=== PATIENT | male | born 1970 | race Caucasian/White ===

== ENCOUNTER 2017-03-31 02:23 | Emergency (ER) | payer BC, OTHER ==
[2017-03-31] MEDS ORDERED: oxyCODONE/Acetamin 5/325 MG* TAB PO ONE ×2 (04:49→04:50)
[2017-03-31 05:33] VITALS: BP 134/76
--- NOTE | 2017-03-31 08:13 | RAD ---
INDICATION: Right ankle pain. TECHNIQUE: 3 views of the right ankle were obtained. FINDINGS: The bones are in normal alignment. There is mild cortical irregularity along the posterior aspect of the distal tibia possibly secondary to an old fracture. No acute fracture is seen. Joint spaces appear maintained. IMPRESSION: 1. NO EVIDENCE FOR ACUTE FINDING. 2. POSSIBLE OLD HEALED FRACTURE OF THE POSTERIOR DISTAL TIBIA.
--- NOTE | 2017-03-31 08:26 | ED ---
Tashia Rodrigez Salem, scribed for Dariel Boland MD on 03/31/17 at 0454 . Lower Extremity - HPI Summary HPI Summary: Patient is a 46 y/o male who presents to the ED with pain in the lateral, back right foot for the past couple of days. Pt reports soreness to soleous a couple of days ago that began while he was walking around, pain has worsened since. Pain is also aggravated with ankle movement. He states that he does not feel like he can move the outer 3 right toes. He has no other complaints. - History of Current Complaint Chief Complaint: EDExtremityLower Stated Complaint: RT ANKLE PAIN Hx Obtained From: Patient Onset/Duration: Days Severity Initially: Moderate Severity Currently: Moderate Pain Intensity: 8 Pain Scale Used: 0-10 Numeric Timing: Constant Location: Is Discrete @ - lateral, back right foot. Character Of Pain: Aching Associated Signs And Symptoms: Positive: Negative Aggravating Factor(s): Standing, Ambulation, Movement Alleviating Factor(s): Nothing - Allergies/Home Medications Allergies/Adverse Reactions: Allergies Allergy/AdvReac Type Severity Reaction Status Date / Time FISH Allergy Nausea And Uncoded 10/01/14 09:04 Vomiting PMH/Surg Hx/FS Hx/Imm Hx Musculoskeletal History: Reports: Hx Tendonitis - BILATERAL ANKLE, Other Musculoskeletal History - OSTEOARTHROSIS LEFT ANKLE AND FOOT Sensory History: Denies: Hx Contacts or Glasses, Hx Hearing Aid Opthamlomology History: Denies: Hx Contacts or Glasses - Surgical History Surgery Procedure, Year, and Place: left ankle ARTHROSCOPY WITH BONE SPUR REMOVED, [facility]. bone spur removed from LEFFT achilles, [facility]. build-up cleaned out from between LEFT tibia & fibula, [facility] Hx Anesthesia Reactions: Yes - WAKING DURING ONE OF THE PROCEDURES Infectious Disease History: Denies: Traveled Outside the [place] in Last 30 Days - Family History Known Family History: Negative: Cardiac Disease, Hypertension - Social History Alcohol Use: Occasionally Hx Substance Use: No Substance Use Type: Reports: None Hx Tobacco Use: Yes Smoking Status (MU): Light Every Day Tobacco Smoker Type: Cigars Amount Used/How Often: CIGAR EVERY 4-5 MONTHS, NONE IN ALMOST A YEAR Length of Time of Smoking/Using Tobacco: 20 YEARS Have You Smoked in the Last Year: No Review of Systems Negative: Fever Positive: Other - Pain lateral, back right foot. See HPI. All Other Systems Reviewed And Are Negative: Yes Physical Exam Triage Information Reviewed: Yes Vital Signs On Initial Exam: Initial Vitals Temp Pulse Resp BP Pulse Ox 96.3 F 61 18 125/59 98 03/31/17 02:25 03/31/17 02:25 03/31/17 02:25 03/31/17 02:25 03/31/17 02:25 Vital Signs Reviewed: Yes Appearance: Positive: Well-Appearing, No Pain Distress Skin: Positive: Warm, Skin Color Reflects Adequate Perfusion, Dry Head/Face: Positive: Normal Head/Face Inspection Eyes: Positive: EOMI, ANJALI Neck: Positive: Supple, Nontender Respiratory/Lung Sounds: Positive: Clear to Auscultation, Breath Sounds Present Cardiovascular: Positive: RRR Abdomen Description: Positive: Nontender, Soft Musculoskeletal: Positive: Other - No calf tenderness or popliteal tendon tenderness. FOM right knee. Good capillary refill. Good dorsal pedal pulses. Tender and swollen soft tissue of lateral malleolus. Achilles tendon intact. Some tenderness of plantar aspect of right foot. Neurological: Positive: Normal, Sensory/Motor Intact, Alert, Oriented to Person Place, Time Psychiatric: Positive: Affect/Mood Appropriate Diagnostics - Vital Signs Vital Signs Temp Pulse Resp BP Pulse Ox 03/31/17 02:25 96.3 F 61 18 125/59 98 - Laboratory Lab Statement: Any lab studies that have been ordered have been reviewed, and results considered in the medical decision making process. - Radiology ANKLE XR Radiology Interpretation Completed By: ED Physician - Negative. Lower Extremity Course/Dx - Course Course Of Treatment: NO CRITICAL CARE TIME Assessment/Plan: NO FXR SEEN ON X-RAY. DISCHARGE HOME STABLE. - Diagnoses Provider Diagnoses: Right ankle sprain Discharge - Discharge Plan Condition: Stable Disposition: HOME Prescriptions: oxyCODONE/Acetamin 5/325 MG* [Percocet 5/325 TAB*] 1 tab PO Q4H PRN #20 tab MDD 6 PRN Reason: Pain Patient Education Materials: Ankle Sprain (ED), RICE Therapy (ED) Referrals: Ralph Amaya MD [Primary Care Provider] - Kelvin Meyers MD [Medical Doctor] - Additional Instructions: FOLLOW UP WITH YOUR DOCTOR. RETURN TO THE EMERGENCY DEPARTMENT FOR ANY WORSENING OF YOUR CONDITION OR QUESTIONS OR CONCERNS. The documentation as recorded by the Tashia merritt Salem accurately reflects the service I personally performed and the decisions made by me, Dariel Boland MD.
== END 2017-03-31 05:28 | disposition home or self-care (01) ==
LOC: ED 02:23
DX: S93.401A Sprain of unspecified ligament of right ankle, initial encounter (principal); X58.XXXA Exposure to other specified factors, initial encounter; Y93.9 Activity, unspecified; Y92.9 Unspecified place or not applicable; F17.210 Nicotine dependence, cigarettes, uncomplicated
CPT/HCPCS: 99282; A9270-GY